=== PATIENT | male | born 1965 | race African-American/Black ===

== ENCOUNTER 2019-05-04 13:49 | Emergency (ER) | payer MEDICAID ==
[~2019-05-04] VITALS: Ht 188 cm; Wt 94.0 kg
[2019-05-04 16:17] VITALS: BP 124/88
== END 2019-05-04 16:25 | disposition home or self-care (01) ==
LOC: ER 14:37
DX: M25.562 Pain in left knee (principal); M19.90 Unspecified osteoarthritis, unspecified site; Z88.2 Allergy status to sulfonamides
CPT/HCPCS: 99283; Z7610